=== PATIENT | male | born 1945 | race Caucasian/White ===

== ENCOUNTER → 2020-05-10 | Outpatient (CLI) | payer OTHER ==
[~2020-05-10] MED LIST: ALDACTONE 25MG25 MG PO; AMITRIPTYLINE100 MG PO; ECOTRIN81 MG PO; ELIQUIS5 MG PO; FUROSEMIDE40 MG PO; GLUCOPHAGE500 MG PO; K-DUR TAB 10 M10 MEQ PO; LASIX20 MG PO; LISINOPRIL5 MG PO; LOPRESSOR 25 MG25 MG PO; QUETIAPINE FUMA25 MG PO; REQUIP5 MG PO; RESTORIL 15 MG15 MG PO; RESTORIL30 MG PO
[2020-05-10 10:48] LABS: HEMOGLOBIN 11.6 gm/dl (14.0-17.5); RED BLOOD COUNT 4.3 M/UL (4.20-5.50); WHITE BLOOD COUNT 5.7 K/UL (4.5-11.0)
[2020-05-10 13:46] LABS: BUN/CREATININE RATIO 27 (0-10)
[2020-05-11 12:14] LABS: CREATININE, URINE 183.3 mg/dL (Not Estab.)
[2020-05-12 11:15] LABS: CHOLESTEROL, TOTAL 131 mg/dL (100-199); HDL SIZE 10.5 nm (>=9.2); HDL-C 63 mg/dL (>39); HDL-P (TOTAL) 26.4 umol/L (>=30.5); LARGE HDL-P 10.7 umol/L (>=4.8); LARGE VLDL-P <0.8 nmol/L (<=2.7); LDL SIZE 21.2 nm (>20.5); LDL SIZE 21.2 nm (>=20.8); LDL-C 55 mg/dL (0-99); LDL-P 581 nmol/L (<1000); LP-IR SCORE <25 (<=45); SMALL LDL-P <90 nmol/L (<=527); TRIGLYCERIDES 61 mg/dL (0-149); VLDL SIZE 44.8 nm (<=46.6)
== END ==
LOC: LAB 09:58
PROVIDERS: Emergency Medicine
DX: E11.42 Type 2 diabetes mellitus with diabetic polyneuropathy (principal); E11.65 Type 2 diabetes mellitus with hyperglycemia; E11.69 Type 2 diabetes mellitus with other specified complication; B96.81 Helicobacter pylori [H. pylori] as the cause of diseases classified elsewhere; E29.1 Testicular hypofunction; E53.9 Vitamin B deficiency, unspecified; G47.09 Other insomnia; G60.3 Idiopathic progressive neuropathy; H61.23 Impacted cerumen, bilateral; I10 Essential (primary) hypertension; I25.10 Atherosclerotic heart disease of native coronary artery without angina pectoris; Z79.01 Long term (current) use of anticoagulants; Z79.84 Long term (current) use of oral hypoglycemic drugs; Z79.82 Long term (current) use of aspirin; Z79.899 Other long term (current) drug therapy
CPT/HCPCS: 36415; 36600; 80053; 82043; 82570; 82803; 83036; 84443; 84550; 85025

== ENCOUNTER → 2020-05-13 | Outpatient (CLI) | payer OTHER | LOC: HEART 5 13:12 | DX: R94.39 Abnormal result of other cardiovascular function study (principal); I27.20 Pulmonary hypertension, unspecified; I08.3 Combined rheumatic disorders of mitral, aortic and tricuspid valves | CPT/HCPCS: 93306 ==